=== PATIENT | male | born 1950 | race Caucasian/White ===

== ENCOUNTER 2017-02-18 13:59 | Emergency (ER) | payer OTHER, MEDICAID ==
[~2017-02-18] VITALS: Ht 165.1 cm; Wt 65.8 kg
[2017-02-18 14:32] VITALS: BP_SYST 120
[2017-02-18] MEDS ORDERED: DIPH-TET-PERTUS Vaccine 0.5 ML VIAL (ADACEL) IM ONE (15:00)
[2017-02-18] MEDS ORDERED: BACITRACIN 1 GM OINT TP ONE (15:00)
[2017-02-18 16:19] VITALS: BP_SYST 120
== END 2017-02-18 16:19 | disposition home or self-care (01) ==
LOC: SED 13:59
DX: S01.111A Laceration without foreign body of right eyelid and periocular area, initial encounter (principal); W07.XXXA Fall from chair, initial encounter; Y93.89 Activity, other specified; Y92.89 Other specified places as the place of occurrence of the external cause; Y99.8 Other external cause status
CPT/HCPCS: 90715; 99283